=== PATIENT | female | born 1975 | race Caucasian/White ===

== ENCOUNTER 2020-05-09 15:53 | Emergency (ER) | payer MEDICAID ==
[~2020-05-09] VITALS: Ht 165.1 cm; Wt 81.8 kg
[2020-05-09 15:55] VITALS: BP 128/77
[2020-05-09] MEDS ORDERED: LORA-269 PO (16:01)
[2020-05-09] MEDS ORDERED: ONDA4TAB6 PO (16:01)
== END 2020-05-09 16:26 | disposition home or self-care (01) ==
LOC: ER 15:53
DX: F10.229 Alcohol dependence with intoxication, unspecified (principal); B37.9 Candidiasis, unspecified; F17.200 Nicotine dependence, unspecified, uncomplicated; Z98.0 Intestinal bypass and anastomosis status; Z88.5 Allergy status to narcotic agent; Z79.899 Other long term (current) drug therapy
CPT/HCPCS: 99283